=== PATIENT | male | born 1960 | race African-American/Black ===

== ENCOUNTER 2018-01-25 19:09 | Emergency (ER) | payer OTHER ==
[~2018-01-25] VITALS: Ht 185.4 cm; Wt 90.7 kg
--- NOTE | 2018-01-25 19:34 | PHYS DOC ---
Past Medical History Past Medical History: No Pertinent History Additional Past Surgical Histo: prostate biopsy Additional Information: nonsmoker Alcohol Use: None Drug Use: None Adult General Chief Complaint Chief Complaint: POST-OP PROBLEM HPI HPI Patient is a 57 year old previously healthy female presenting to the ED due to chills and lightheadedness. Patient underwent prostate biopsy this afternoon at 3 PM due to rapid increase in PSA from 5-6.3 and a matter of months. He notes that he received preoperative ciprofloxacin at 1 PM. Around 5 PM today, he ate some chicken, green beans, and drank some elias heriberto. He also took his multivitamins and his elias pills. Afterwards, he also need to go to the bathroom and had 2 episodes of diarrhea. He also noted dark blood in the stool after his first episode of diarrhea, but states that the urologist had warned him that this may occur. Following a second episode of diarrhea he experienced lightheadedness, chills, sweating, which brought him to the ED. He states that he is currently comfortable, and that he could probably go home. He only complains that he has at this moment is mild soreness of the surgical site. Review of Systems Review of Systems Constitutional: Denies fever or chills [] Eyes: Denies change in visual acuity, redness, or eye pain [] HENT: Denies nasal congestion or sore throat [] Respiratory: Denies cough or shortness of breath [] Cardiovascular: No additional information not addressed in HPI [] GI: Denies abdominal pain, nausea, vomiting, bloody stools or diarrhea [] : Denies dysuria or hematuria [] Musculoskeletal: Denies back pain or joint pain [] Integument: Denies rash or skin lesions [] Neurologic: Denies headache, focal weakness or sensory changes [] Complete systems were reviewed and found to be within normal limits, except as documented in this note. Allergies Allergies Allergies Coded Allergies Type Severity Reaction Last Updated Verified lisinopril Allergy Intermediate 01/25/18 Yes Physical Exam Physical Exam Constitutional: Well developed, well nourished, no acute distress, non-toxic appearance. [] HENT: Normocephalic, atraumatic, bilateral external ears normal, oropharynx moist, no oral exudates, nose normal. [] Eyes: PERRLA, EOMI, conjunctiva normal, no discharge. [] Neck: Normal range of motion, no tenderness, supple, no stridor. [] Cardiovascular:Heart rate regular rhythm, no murmur [] Lungs & Thorax: Bilateral breath sounds clear to auscultation [] Abdomen: Bowel sounds normal, soft, no tenderness, no masses, no pulsatile masses. [] Skin: Warm, dry, no erythema, no rash. [] Back: No tenderness, no CVA tenderness. [] Extremities: No tenderness, no cyanosis, no clubbing, ROM intact, no edema. [] Neurologic: Alert and oriented X 3, normal motor function, normal sensory function, no focal deficits noted. [] Psychologic: Affect normal, judgement normal, mood normal. [] Current Patient Data Vital Signs Vital Signs Date Time Temp Pulse Resp B/P (MAP) Pulse Ox O2 Delivery O2 Flow Rate FiO2 01/25/18 19:10 97.8 77 20 128/79 (95) 99 Room Air 97.8 EKG EKG [] Radiology/Procedures Radiology/Procedures [] Course & Med Decision Making Course & Med Decision Making 57-year-old male presenting to the ED due to lightheadedness and chills following prostate biopsy today. Dragon Disclaimer Dragon Disclaimer This electronic medical record was generated, in whole or in part, using a voice recognition dictation system. Departure Departure Impression: Primary Impression: Medication reaction Additional Impression: Diarrhea Disposition: 01 HOME, SELF-CARE Condition: IMPROVED Patient Instructions: Ciprofloxacin extended-release tablets, Prostate Biopsy ( TRUS), [id number] Additional Instructions: You may have experienced side effects from the medication or from the procedure itself. It seems that things have completely resolved at this time. Would advise to continue previously provided discharge instructions from your doctor. Problem Qualifiers Primary Impression: Medication reaction Encounter type: initial encounter Qualified Codes: T50.905A - Adverse effect of unspecified drugs, medicaments and biological substances, initial encounter Additional Impression: Diarrhea Diarrhea type: unspecified type Qualified Codes: R19.7 - Diarrhea, unspecified TIA MANCILLA DO Jan 25, 2018 19:34
[2018-01-25 20:00] VITALS: BP 131/83
== END 2018-01-25 20:20 | disposition home or self-care (01) ==
LOC: ER 19:09
DX: K52.1 Toxic gastroenteritis and colitis (principal); T50.995A Adverse effect of other drugs, medicaments and biological substances, initial encounter; K92.1 Melena; R42 Dizziness and giddiness; Z88.8 Allergy status to other drugs, medicaments and biological substances; Y92.89 Other specified places as the place of occurrence of the external cause
CPT/HCPCS: 99283